=== PATIENT | male | born 1990 | race African-American/Black ===

== ENCOUNTER 2020-07-24 11:37 | Emergency (ER) | payer OTHER, SELFPAY ==
--- NOTE | ~2020-07-24 | US_ITS ---
EXAMINATION: US scrotum doppler DATE: 07/24/2020 15:52 INDICATION: Scrotal pain. Draining cyst. TECHNIQUE: Grayscale and Doppler ultrasound images of the testes were obtained. COMPARISON: None. FINDINGS: The right testis measures 3.8 x 2.9 x 1.9 cm. The left testis measures 3.8 x 2.9 x 1.9 cm. There is normal vascular flow to both testes. The right epididymis is normal with normal vascular hiwot w. The left epididymis is normal with normal vascular flow. There is no varicocele or hydrocele. Ther e are multiple hypoechoic masses at the scrotal skin measuring up to 1.2 cm. IMPRESSION: 1. Hypoechoic masses at the scrotal skin, likely inflammation. Reviewed, dictated and finalized at location A.
[2020-07-24 11:59] VITALS: BP 133/107; PULSE 68; RESP 18; TEMP 36.7; O2SAT 99
[2020-07-24] MEDS: MORPHINE SULFATE (*CRX) 4 MG/ML INJ IV PUSH (14:29)
[2020-07-24 14:45] LABS: Basophils Absolute Auto 0.1 K/mm3 (0.0-0.1); Basophils Percent Auto 1.2 % (0.2-1.2); Eosinophils Absolute Auto 0.1 K/mm3 (0-0.3); Eosinophils Percent Auto 2.5 % (0-4.4); Hematocrit 44.4 % (42.0-52.0); Hemoglobin 14.8 g/dL (14.0-18.0); Immature Granulocyte Absolute 0.02 K/mm3 (0.00-0.031); Immature Granulocyte Percent A 0.4 % (0-0.5); Lymphocytes Absolute Auto 1.56 K/mm3 (0.9-3.2); Lymphocytes Percent Auto 30.5 % (18.3-44.2); Mean Corpuscular HGB Conc 33.3 g/dl (32-36); Mean Corpuscular Hemoglobin 32.6 pg (26-34); Mean Corpuscular Volume 97.8 fl (80-100); Mean Platelet Volume 9.6 fl (7.4-10.4); Monocytes Absolute Auto 0.5 K/mm3 (0.1-0.6); Monocytes Percent Auto 9.8 % (2.6-8.5); Neutrophils Absolute Auto 2.9 K/mm3 (1.3-6.7); Neutrophils Percent Auto 55.6 % (45.5-73.1); Platelet Count Result 238 k/mm3 (150-375); Red Blood Count 4.54 M/mm3 (4.6-6.20); Red Cell Distribution Width 11.7 % (11.5-14.5); White Blood Count 5.1 K/mm3 (4.5-10.0)
[2020-07-24 14:59] LABS: Anion Gap 5 mmol/L (8-16); Blood Urea Nitrogen 6 mg/dL (9-20); Calcium 9.4 mg/dL (8.4-10.2); Carbon Dioxide 33 mmol/L (22-30); Chloride 102 mmol/L (98-107); Estimated CRCL calculation 98 ml/min; Estimated Glomerular Filt Rate > 60; Glucose 95 mg/dL (75-110); Potassium 4.1 mmol/L (3.4-5.0); Sodium 140 mmol/L (137-145)
[2020-07-24 15:06] LABS: Add Urine Microscopic? YES; Appearance Urine Cloudy (Clear); Bacteria Urine Trace /hpf; Bilirubin Urine Negative (Negative); Blood Urine Negative (Negative); Color Urine Yellow (Yellow); Glucose Urine UA Negative (Negative); Ketones Urine Negative (Negative); Leukocyte Esterase Ur Trace LEU/UL (Negative); Nitrate Urine Negative (Negative); Protein Urine 2+ mg/dL (Negative); RBC Urine 0-2 /hpf (0-2); Specific Grav Ur 1.021 (1.001-1.035); Squamous Epithelial Cell Urine Rare /hpf (Few); WBC Urine 0-3 /hpf
--- NOTE | 2020-07-24 15:14 | ED.MALEGU ---
HPI - Male Genitourinary General Chief complaint: Urogenital-Male Stated complaint: cysts on genitals Time Seen by Provider: 07/24/20 13:55 History of Present Illness HPI Narrative: Patient is a 30-year-old male who presents the ER with pain to his scrotum. The pain is on the left side. 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 1 broke open yesterday and is been draining purulent material. No fevers or chills or sweats. No burning urination or urethral discharge. Has not seen a specialist in regards to the cyst on his scrotum. No h/o cystic hidradenitis. Related Data Home Medications Medication Instructions Recorded Confirmed hydroxyzine HCl 25 mg PO HS 07/24/20 07/24/20 melatonin 5 mg PO HS PRN 07/24/20 Allergies Allergy/AdvReac Type Severity Reaction Status Date / Time No Known Allergies Allergy Verified 07/24/20 12:03 Review of Systems Constitutional: Constitutional: Denies chills and Denies fever(s) Gastrointestinal: Gastrointestinal: Denies abdominal pain, Denies nausea and Denies vomiting Genitourinary: Genitourinary: Reports genital lesions (cysts), Denies dysuria, Denies penile discharge, Reports testicular pain and Denies urinary frequency Musculoskeletal: Musculoskeletal: Denies back pain, Denies joint swelling and Denies muscle cramps PMFSH Past Medical History Medical History (Updated 07/24/20 @ 17:14 by Sanjeev Garcia MD) Healthy adult male Surgical History Surgical History (Updated 07/24/20 @ 15:16 by Sanjeev Garcia MD) No history of previous surgery Social History Social History (Updated 07/24/20 @ 15:16 by Sanjeev Garcia MD) Smoking status: Never smoker Gender identity (if verbalized by the patient): Male Exam Narrative: Exam Narrative: GENERAL: Well-appearing, well-nourished, and in no acute distress. HEAD: Normocephalic, atraumatic. ENT: Mucous membranes moist. CHEST: Clear to auscultation. No respiratory distress. HEART: Regular rate and rhythm. Normal peripheral pulses. : Normal-appearing penis. Scrotum with innumerable large cysts that are approximately 1 cm in diameter. On the left side there is increased tenderness for one of the cysts has drained. Unable to express purulence from the area. Mild redness without induration. EXTREMITIES: Normal range of motion. No edema. NEURO: Alert and oriented x3. PSYCH: Normal mood and affect. Course Course Emergency Course: Patient informed of results. Discussed case with Dr. Suarez with urology. Patient to be discharged with doxycycline and norco. F/u in office in a week. Vital Signs Vital signs: Vital Signs Temperature 98.0 F 07/24/20 11:59 Pulse Rate 68 07/24/20 11:59 Respiratory Rate 18 07/24/20 11:59 Blood Pressure 133/107 H 07/24/20 11:59 Pulse Oximetry 99 07/24/20 11:59 Temperature 98.0 F 07/24/20 11:59 Pulse Rate 68 07/24/20 11:59 Respiratory Rate 18 07/24/20 11:59 Blood Pressure 133/107 H 07/24/20 11:59 Pulse Oximetry 99 07/24/20 11:59 MDM - Male Genitourinary Lab Data Result diagrams: 07/24/20 14:37 07/24/20 14:37 Labs: Lab Results 07/24/20 07/24/20 07/24/20 Range/Units 14:37 14:37 14:54 WBC 5.1 (4.5-10.0) K/mm3 RBC 4.54 L (4.6-6.20) M/mm3 Hgb 14.8 (14.0-18.0) g/dL Hct 44.4 (42.0-52.0) % MCV 97.8 (80-100) fl MCH 32.6 (26-34) pg MCHC 33.3 (32-36) g/dl RDW 11.7 (11.5-14.5) % Plt Count 238 (150-375) k/mm3 MPV 9.6 (7.4-10.4) fl Immature Gran % (Auto) 0.4 (0-0.5) % Neut % (Auto) 55.6 (45.5-73.1) % Lymph % (Auto) 30.5 (18.3-44.2) % [place] % (Auto) 9.8 H (2.6-8.5) % Eos % (Auto) 2.5 (0-4.4) % Baso % (Auto) 1.2 (0.2-1.2) % Lymph # (Auto) 1.56 (0.9-3.2) K/mm3 [place] # (Auto) 0.5 (0.1-0.6) K/mm3 Eos # (Auto) 0.1 (0-0.3) K/mm3 Baso # (Auto) 0.1 (0.0-0.1) K/mm3 Abs Immat Gran (auto) 0.02 (0.00-0.031) K/mm3 Absolu
== END 2020-07-24 17:27 | disposition home or self-care (01) ==
PROVIDERS: Emergency Provider Emergency Medicine; PCP Internal Medicine
DX: L72.0 Epidermal cyst (principal)
CPT/HCPCS: 36415; 76870; 80048; 81001; 85025; 93976; 96374; 99284; J2270

== ENCOUNTER 2020-08-25 09:30 | Emergency (ER) | payer OTHER, SELFPAY ==
[2020-08-25 09:30] VITALS: BP 123/83; PULSE 64; RESP 16; TEMP 37.2; O2SAT 100
[2020-08-25] MEDS: ONDANSETRON INJ 4 MG/2 ML VIAL IV PUSH (09:50)
[2020-08-25] MEDS: MORPHINE SULFATE (*CRX) 2 MG/ML INJ IV PUSH (09:50)
[2020-08-25 10:32] LABS: Hematocrit 41.1 % (42.0-52.0); Hemoglobin 13.7 g/dL (14.0-18.0); Mean Corpuscular HGB Conc 33.3 g/dl (32-36); Mean Corpuscular Hemoglobin 33.2 pg (26-34); Mean Corpuscular Volume 99.5 fl (80-100); Mean Platelet Volume 10.2 fl (7.4-10.4); Platelet Count Result 227 k/mm3 (150-375); Red Blood Count 4.13 M/mm3 (4.6-6.20); Red Cell Distribution Width 12.3 % (11.5-14.5); White Blood Count 6.1 K/mm3 (4.5-10.0)
[2020-08-25 10:43] LABS: Alanine Aminotransferase 13 U/L (4-50); Albumin Level 4.1 g/dL (3.5-5.1); Alkaline Phosphatase 43 U/L (38-126); Anion Gap 3 mmol/L (8-16); Aspartate Amino Transferase 31 U/L (17-59); Bilirubin,Total 0.5 mg/dL (0.2-1.3); Blood Urea Nitrogen 6 mg/dL (9-20); Calcium 9.6 mg/dL (8.4-10.2); Carbon Dioxide 32 mmol/L (22-30); Chloride 104 mmol/L (98-107); Estimated CRCL calculation 99 ml/min; Estimated Glomerular Filt Rate > 60; Glucose 95 mg/dL (75-110); Lipase 46 U/L (23-300); Potassium 3.6 mmol/L (3.4-5.0); Sodium 139 mmol/L (137-145)
[2020-08-25 11:00] VITALS: BP 140/86; PULSE 63; RESP 16; O2SAT 100
--- NOTE | 2020-08-25 11:18 | ED.NAVMDI ---
HPI - Nausea/Vomiting/Diarrhea General Chief complaint: Nausea/Vomiting/Diarrhea Stated complaint: VOMITING History of Present Illness HPI Narrative: Patient is a 30-year-old male who presents to the ER with nausea and vomiting as well as diarrhea. Symptoms began last night at 9 PM 2 hours after having couple shots of alcohol. Reports he has had 4 loose stools and has been vomiting bile-like fluid. Reports epigastric pain without radiation. No aggravating or alleviating factors. Has not had similar symptoms previously after having ingested alcohol. No blood in his emesis or stool. No known sick contacts. Related Data Home Medications Medication Instructions Recorded Confirmed melatonin 5 mg PO HS PRN 07/24/20 carbamazepine 08/25/20 08/25/20 chlordiazepoxide HCl 08/25/20 folic acid 08/25/20 hydroxyzine pamoate 08/25/20 Allergies Allergy/AdvReac Type Severity Reaction Status Date / Time No Known Allergies Allergy Verified 08/25/20 09:41 Review of Systems Review of Systems: All systems reviewed & are unremarkable except as noted in HPI and below Constitutional: Constitutional: Denies chills, Denies fever(s) and Denies weakness Cardiovascular: Cardiovascular: Denies chest pain and Denies radiating jaw, neck or arm pain Respiratory: Respiratory: Denies cough and Denies dyspnea Gastrointestinal: Gastrointestinal: Reports abdominal pain, Reports diarrhea, Reports nausea and Reports vomiting Genitourinary: Genitourinary: Denies dysuria and Denies urinary frequency PMFSH Past Medical History Medical History (Updated 08/25/20 @ 13:08 by Sanjeev Garcia MD) Healthy adult male Surgical History Surgical History (Updated 07/24/20 @ 15:16 by Sanjeev Garcia MD) No history of previous surgery Social History Social History (Updated 07/24/20 @ 15:16 by Sanjeev Garcia MD) Smoking status: Never smoker Gender identity (if verbalized by the patient): Male Exam Narrative: Exam Narrative: GENERAL: Well-appearing, well-nourished, and in no acute distress. HEAD: Normocephalic, atraumatic. EYES: PERRLA and EOMI. ENT: Nares clear, no rhinorrhea or epistaxis. Mucous membranes moist. NECK: Supple. CHEST: Clear to auscultation. No respiratory distress. HEART: Regular rate and rhythm. No murmur heard. Normal peripheral pulses. ABDOMEN: Soft, nontender, nondistended, normal active bowel sounds. EXTREMITIES: Normal range of motion. No edema. SKIN: Warm, dry, no rash. NEURO: No focal deficits. Alert and oriented x3. PSYCH: Normal mood and affect. Course Course Emergency Course: Nausea and vomiting improved with Zofran. Pain improved with morphine. Discharge home. Vital Signs Vital signs: Vital Signs Temperature 98.9 F 08/25/20 09:30 Pulse Rate 64 08/25/20 09:30 Respiratory Rate 16 08/25/20 09:30 Blood Pressure 123/83 08/25/20 09:30 Pulse Oximetry 100 08/25/20 09:30 Temperature 98.9 F 08/25/20 09:30 Pulse Rate 64 08/25/20 09:30 Respiratory Rate 16 08/25/20 09:30 Blood Pressure 123/83 08/25/20 09:30 Pulse Oximetry 100 08/25/20 09:30 MDM - Nausea/Vomiting/Diarrhea Lab Data Result diagrams: 08/25/20 10:22 08/25/20 10:22 Labs: Lab Results 08/25/20 08/25/20 Range/Units 10:22 10:22 WBC 6.1 (4.5-10.0) K/mm3 RBC 4.13 L (4.6-6.20) M/mm3 Hgb 13.7 L (14.0-18.0) g/dL Hct 41.1 L (42.0-52.0) % MCV 99.5 (80-100) fl MCH 33.2 (26-34) pg MCHC 33.3 (32-36) g/dl RDW 12.3 (11.5-14.5) % Plt Count 227 (150-375) k/mm3 MPV 10.2 (7.4-10.4) fl Immature Gran % (Auto) Not Reportable Neut % (Auto) Not Reportable Lymph % (Auto) Not Reportable [place] % (Auto) Not Reportable Eos % (Auto) Not Reportable Baso % (Auto) Not Reportable Lymph # (Auto) Not Reportable [place] # (Auto) Not Reportable Eos # (Auto) Not Reportable Baso # (Auto) Not Reportable Abs Immat G
[2020-08-25 12:15] VITALS: BP 156/90; PULSE 57; RESP 16; O2SAT 100
[2020-08-25 12:25] LABS: Eosinophils Absolute Manual 0.06 K/mm3 (0.02-0.5); Eosinophils Percent Manual 1 % (0-4); Lymphocytes Absolute Manual 2.01 K/mm3 (1.1-4.5); Monocytes Absolute Manual 0.54 K/mm3 (0.1-0.90); Monocytes Percent Manual 9 % (3-9); Neutrophils Percent Manual 57 % (46-73); Total Cells Counted 100
[2020-08-25 12:26] LABS: Platelet Estimate Adequate (Adequate)
[2020-08-25 13:20] VITALS: BP 118/72; PULSE 78; RESP 16; O2SAT 100
== END 2020-08-25 13:21 | disposition home or self-care (01) ==
PROVIDERS: Emergency Provider Emergency Medicine; PCP Pediatrics
DX: K52.9 Noninfective gastroenteritis and colitis, unspecified (principal)
CPT/HCPCS: 36415; 80053; 83690; 85025; 96374; 96375; 99284; J2270; J2405